=== PATIENT | male | born 1970 | race Two or more races ===

== ENCOUNTER 2018-05-17 22:49 | Emergency (ER) | payer OTHER ==
[~2018-05-17] VITALS: Ht 182.9 cm; Wt 122.5 kg
[2018-05-17 23:00] VITALS: BP 112/71
[2018-05-17] MEDS ORDERED: Clindamycin 900mg 50 ML IVPB ONE (23:15)
--- NOTE | 2018-05-17 23:16 | Emergency Room Report ---
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 He presents with chief complaint of right leg swelling and redness. Onset 2 days ago. He had a fever and swelling to his right lower extremity. Now gets red. Painful to walk. No nausea no vomiting. Pain is 7 out of 10. No trauma. No shortness of breath. No IV drug use. Allergies: Coded Allergies: No Known Allergies (Unverified , 05/17/18) Patient History Past Medical History: see triage record, old chart reviewed Past Surgical History: other Pertinent Family History: none Social History: Reports: smoking Immunizations: other Reviewed Nursing Documentation: PMH: Agreed; PSxH: Agreed Nursing Documentation-PMH Past Medical History: No Stated History Review of Systems Eye: Denies: eye pain, blurred vision ENT: Denies: ear pain, nose congestion, throat swelling Respiratory: Denies: cough, shortness of breath Cardiovascular: Denies: chest pain, palpitations Gastrointestinal: Denies: abdominal pain, diarrhea, nausea, vomiting Musculoskeletal: Reports: joint pain, joint swelling, muscle pain; Denies: back pain Skin: Denies: rash Neurological: Denies: headache, numbness Endocrine: Denies: increased thirst, increased urine Hematologic/Lymphatic: Denies: easy bruising All Other Systems: negative except mentioned in HPI Physical Exam Vital Signs Date Time Temp Pulse Resp B/P (MAP) Pulse Ox O2 Delivery O2 Flow Rate FiO2 05/17/18 22:52 98.0 83 16 125/77 95 Room Air 98.1 vitals normal Sp02 EP Interpretation: reviewed, normal General Appearance: well appearing, no apparent distress, alert Head: normocephalic, atraumatic Eyes: bilateral eye PERRL, bilateral eye EOMI ENT: hearing grossly normal, normal pharynx Neck: full range of motion, supple, no meningismus Respiratory: chest non-tender, lungs clear, normal breath sounds Cardiovascular #1: regular rate, rhythm, no murmur Gastrointestinal: normal bowel sounds, non tender, no mass, no organomegaly, no bruit, non-distended Musculoskeletal: back normal, gait/station normal, normal range of motion, swelling - Right lower extremity: There is edema and erythema from the ankle posteriorly to the calf area. Tender to palpation. Pulses normal. Neurologic: alert, oriented x3 Psychiatric: mood/affect normal Skin: warm/dry Medical Decision Making Diagnostic Impression: Primary Impression: Cellulitis of right lower extremity without foot Additional Impressions: Cocaine abuse Methamphetamine abuse ER Course Patient presents with cellulitis of his right lower extremity. No evidence of DVT. No evidence of necrotizing fasciitis. Dose of IV antibiotics given. We' ll discharge home. Lab Results Impression labs are normal CT/MRI/US Diagnostic Results CT/MRI/US Diagnostic Results : Imaging Test Ordered: Right lower leg ultrasound Impression read by radiologist. Neg Last Vital Signs Date Time Temp Pulse Resp B/P (MAP) Pulse Ox O2 Delivery O2 Flow Rate FiO2 05/17/18 22:52 98.0 83 16 125/77 95 Room Air 98.1 Status: improved Disposition: HOME, SELF-CARE Condition: Stable Scripts Clindamycin Hcl (CLINDAMYCIN HCL) 300 Mg Capsule 300 MG ORAL THREE TIMES A DAY, #21 CAP Prov: GARRETT CLAROS M.D. 05/18/18 Referrals: [facility],REFERRING (PCP) Additional Instructions: Stop using drugs. Follow-up with your DrFahad in 2 days for recheck. Return if worse. GARRETT CLAROS M.D. May 17, 2018 23:16
[2018-05-17 23:45] LABS: EOSINOPHILS % (AUTO) 1.8 % (0.0-3.0); HEMATOCRIT 43.8 % (42.0-52.0); HEMOGLOBIN 13.9 G/DL (14.2-18.0); LYMPHOCYTES % (AUTO) 36.7 % (20.0-45.0); MEAN CORPUSCULAR VOLUME 80 FL (80-99); MONOCYTES % (AUTO) 15.7 % (1.0-10.0); NEUTROPHILS % (AUTO) 44.8 % (45.0-75.0); PLATELET COUNT 212 K/UL (150-450); RED BLOOD COUNT 5.45 M/UL (4.70-6.10); RED CELL DISTRIBUTION WIDTH 12.9 % (11.6-14.8); WHITE BLOOD COUNT 7.1 K/UL (4.8-10.8)
[2018-05-17 23:47] LABS: BILIRUBIN, URINE NEGATIVE (NEGATIVE); GLUCOSE, URINE (UA) NEGATIVE (NEGATIVE); KETONES,URINE NEGATIVE (NEGATIVE); LEUKOCYTE ESTERASE ,URINE 3+ (NEGATIVE); NITRITE,URINE NEGATIVE (NEGATIVE); PH,URINE 5 (4.5-8.0); PROTEIN,URINE 1+ (NEGATIVE); UROBILINOGEN,URINE 4 MG/DL (0.0-1.0)
[2018-05-17 23:56] LABS: APPEARANCE,URINE SLIGHTLY CLOUDY; COLOR,URINE YELLOW
[2018-05-17 23:58] LABS: ANION GAP 6 mmol/L (5-15); BLOOD UREA NITROGEN 12 mg/dL (7-18); CARBON DIOXIDE 30 MMOL/L (21-32); CHLORIDE 102 MMOL/L (98-107); CREATININE 1.2 MG/DL (0.55-1.30); SODIUM 138 MMOL/L (136-145)
[2018-05-18 00:46] VITALS: BP 95/48
[2018-05-18] MEDS ORDERED: CLINDAMYCIN HC300 MG ORAL (01:02)
[2018-05-18 01:13] VITALS: BP 95/48
== END 2018-05-18 01:13 | disposition home or self-care (01) ==
LOC: EMR 23:06
DX: L03.115 Cellulitis of right lower limb (principal); F14.10 Cocaine abuse, uncomplicated; F15.10 Other stimulant abuse, uncomplicated
CPT/HCPCS: 36415; 80048; 80307; 81001; 85025; 85610; 85730; 87086; 93971; 96365; 99284; S0077

== ENCOUNTER 2019-01-13 21:42 | Emergency (ER) | payer OTHER ==
[~2019-01-13] VITALS: Ht 182.9 cm; Wt 111.1 kg
[~2019-01-13 21:42] MED LIST: CLINDAMYCIN HC300 MG ORAL
[2019-01-13 22:24] VITALS: BP 120/74
[2019-01-13] MEDS ORDERED: IBUPROFEN600 MG ORAL (22:32)
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
[2019-01-13 23:06] VITALS: BP 120/74
--- NOTE | 2019-01-14 11:24 | Diagnostic Imaging Report ---
Indication: Right-sided Chest trauma and pain. Comparison: None Findings: 4 views of the right chest wall was obtained for evaluation of the ribs. There is ill-defined density at the left lung base which may be atelectasis. A small effusion is not excluded. The area of interest is on the right sided chest which is the area of trauma. There is no acute fracture identified within the rib cage on the right. The left rib cage was not imaged. Bones are osteopenic. IMPRESSION: No acute fracture. Left basal atelectasis and small pleural effusion versus thickening. Left side is at the region of interest and this is therefore likely incidental.
== END 2019-01-13 23:10 | disposition home or self-care (01) ==
LOC: EMR 22:28
DX: S20.219A Contusion of unspecified front wall of thorax, initial encounter (principal); X58.XXXA Exposure to other specified factors, initial encounter; Y92.9 Unspecified place or not applicable
CPT/HCPCS: 99283

== ENCOUNTER 2019-08-05 22:32 | Emergency (ER) | payer OTHER ==
[~2019-08-05] VITALS: Ht 183.5 cm; Wt 117.9 kg
[~2019-08-05 22:32] MED LIST changes: +IBUPROFEN600 MG ORAL
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
[2019-08-05 22:55] VITALS: BP 120/81
[2019-08-05] MEDS ORDERED: Methocarbamol 750mg tab ORAL ONE ×2 (23:28→23:30)
[2019-08-05] MEDS ORDERED: Ketorolac 30mg Inj ONE (23:28)
[2019-08-05] MEDS ORDERED: Ketorolac 60mg Inj IM ONE (23:30)
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
[2019-08-05] MEDS ORDERED: ROBAXIN-750750 MG PO (23:44)
[2019-08-05] MEDS ORDERED: IBUPROFEN600 MG ORAL (23:44)
[2019-08-05 23:46] VITALS: BP 129/88
--- NOTE | 2019-08-05 23:46 | NUR ---
ER DISCHARGE NOTE: Patient is cleared to be discharged per ERMD, pt is aox4, on room air, with stable vital signs. pt was given dc instructions, pt was able to verbalize understanding, pt id band removed without complications. pt is able to ambulate with steady gait. pt took all belongings.
== END 2019-08-05 23:46 | disposition home or self-care (01) ==
LOC: EMR 23:01
DX: M54.5 Low back pain (principal); V43.92XA Unspecified car occupant injured in collision with other type car in traffic accident, initial encounter; Y92.410 Unspecified street and highway as the place of occurrence of the external cause
CPT/HCPCS: 96372; 99283

== ENCOUNTER 2019-12-17 21:10 | Emergency (ER) | payer OTHER ==
[~2019-12-17] VITALS: Ht 182.9 cm; Wt 122.5 kg
[~2019-12-17 21:10] MED LIST changes: +ROBAXIN-750750 MG PO
[2019-12-17 21:22] VITALS: BP 148/88
--- NOTE | 2019-12-17 21:23 | NUR ---
ER Nurse Note: Pt walked in c/o LT jaw pain for unk time. Pt stated 8/10 aching pain with abcess in LT cheeck pocket. No fever. Pt stated he has not seen the dentist. Will conitnue to jane.
[2019-12-17] MEDS ORDERED: Augmentin 875mg Tab ORAL ONE (21:30)
[2019-12-17] MEDS ORDERED: IBUPROFEN600 MG ORAL (21:37)
[2019-12-17] MEDS ORDERED: AUGMENTIN 875-1 EAC1 ORAL (21:37)
[2019-12-17 21:40] VITALS: BP 148/88
--- NOTE | 2019-12-17 21:40 | NUR ---
ED Nurse Note: All orders completed per ERMD orders. Pt cleared by health care Provider for discharge. DC instructions/prescription was given and explained to pt and verbalized understanding of teachings. Instructed pt to follow up with primary care physican within one week. All medical deviecs such as ID band removed. Pt is AAO x4, ambulatory and left with all personal belongings.
--- NOTE | 2019-12-18 00:12 | Emergency Room Report ---
History of Present Illness General Chief Complaint: Toothache Source: Patient Present Illness HPI 49-year-old male presents ED complaining of left tooth pain and swelling. States symptoms started x1 day. Pain is throbbing, 8 out of 10, nonradiating. States he needs to have some dental work done but has not gone yet. Denies fevers or chills. Denies discharge. Denies neck stiffness. No other aggravating relieving factors. Denies any other associated symptoms Allergies: Coded Allergies: No Known Allergies (Unverified , 05/17/18) Patient History Past Medical History: none Past Surgical History: none Pertinent Family History: none Social History: Denies: smoking, alcohol use, drug use Immunizations: UTD Reviewed Nursing Documentation: PMH: Agreed; PSxH: Agreed Nursing Documentation-PMH Past Medical History: No Stated History Review of Systems All Other Systems: negative except mentioned in HPI Physical Exam Vital Signs Date Time Temp Pulse Resp B/P (MAP) Pulse Ox O2 Delivery O2 Flow Rate FiO2 12/17/19 21:14 98.2 84 16 148/88 (108) 96 Room Air Sp02 EP Interpretation: reviewed, normal General Appearance: no apparent distress, alert, GCS 15, non-toxic, obese Head: normocephalic, atraumatic Eyes: bilateral eye normal inspection, bilateral eye PERRL ENT: hearing grossly normal, normal pharynx, no angioedema, normal voice, other - Audible dental caries. Cracked teeth L upper jaw. surroudning swelling. no fluctuance. no induration Neck: full range of motion, supple, supple/symm/no masses Respiratory: chest non-tender, lungs clear, normal breath sounds, speaking full sentences Cardiovascular #1: regular rate, rhythm, no edema Cardiovascular #2: 2+ carotid (R), 2+ carotid (L), 2+ radial (R), 2+ radial (L) , 2+ dorsalis pedis (R), 2+ dorsalis pedis (L) Gastrointestinal: normal bowel sounds, non tender, soft, non-distended, no guarding, no rebound Rectal: deferred Genitourinary: normal inspection, no CVA tenderness Musculoskeletal: back normal, normal range of motion, gait/station normal, non- tender Neurologic: alert, motor strength/tone normal, oriented x3, sensory intact, responsive, speech normal Psychiatric: judgement/insight normal, memory normal, mood/affect normal, no suicidal/homicidal ideation Reflexes: 3+ bicep (R), 3+ bicep (L), 3+ tricep (R), 3+ tricep (L), 3+ knee (R) , 3+ knee (L) Lymphatic: no adenopathy Medical Decision Making Diagnostic Impression: Primary Impression: Toothache ER Course 49-year-old male presents ED complaining of tooth pain. Cracked tooth, dental abscess, cavity Patient placed on stretcher. After initial history, physical exam reveals a male in mild distress. There are multiple dental caries with some decaying teeth noted in the left upper jaw. There is some surrounding swelling notably in the cheek. No induration or fluctuance or discharge. Discussed findings with patient. Given antibiotics and pain meds in ED. Will discharge home with prescriptions. He needs to follow-up with dentist soon. I will provide referrals. Diagnosis- toothache Stable and discharged to home prescription for Motrin, augmentin. Instructed to see dentist as a walk-in this week. Return to ED if symptoms recur or worse Last Vital Signs Date Time Temp Pulse Resp B/P (MAP) Pulse Ox O2 Delivery O2 Flow Rate FiO2 12/17/19 22:14 98.2 12/17/19 21:40 86 16 148/88 96 Room Air Status: improved Disposition: HOME, SELF-CARE Condition: Stable Scripts Ibuprofen* (MOTRIN*) 600 Mg Tablet 600 MG ORAL Q8H PRN for For Pain, #30 TAB 0 Refills Prov: Henrique Hawkins MD 12/17/19 Amoxicillin/Potassium Clav 875-125* (AUGMENTIN 875-125 TABLET*) 1 Each Tablet 1 TAB ORAL TWICE A DAY, #14 TAB Prov: Henrique Hawkins MD 12/17/19 Referrals: [facility](age 2-12) - Orthodontic Clinic - Hours: Mon,Fri,, 8:15am and 1pm (new patient screening), Tu. 1pm. Emergency clinic Friday - Friday 8:30am and 1pm, . 1pm. *Call to check if clinic is open; No appointment necessary for the first visit ( new patient screening), Arrive 15-30 minutes early as it is first come, first serve. [facility] INFO: New Patient Screening: Fri- 8am-1pm Mon- 9am -5pm and Fri 2pm-5pm Patient Instructions: Dental Pain Henrique Hawkins MD Dec 18, 2019 00:12
== END 2019-12-17 21:40 | disposition home or self-care (01) ==
LOC: EMR 21:30
DX: K08.89 Other specified disorders of teeth and supporting structures (principal)
CPT/HCPCS: 99282

== ENCOUNTER 2020-11-07 17:04 | Emergency (ER) | payer OTHER ==
[~2020-11-07] VITALS: Ht 188 cm; Wt 117.9 kg
[~2020-11-07 17:04] MED LIST changes: +AUGMENTIN 875-1 EAC1 ORAL
[2020-11-07 17:29] VITALS: BP 120/80
--- NOTE | 2020-11-07 18:48 | Emergency Room Report ---
History of Present Illness General Chief Complaint: Fever Source: Patient (Estefania Reid) Present Illness HPI 50 YO male presents to the emergency department complaining of 6 out of 10 in severity pain and swelling to the right lower side of his jaw x3 hours. Patient reports swelling got worse after eating. Patient reports that his symptoms are slowly resolving. He denies history of salivary stones. Patient does report frequent dry mouth and states that he smokes marijuana regularly. He denies dental pain or posterior throat pain. Patient is also complaining of cough with fevers x5 days. He denies mucus production. Patient denies chest pain or shortness of breath despite having a low oxygen saturation in triage. Patient states he has not been tested for COVID-19. He does report initially having some body aches. He denies headache, neck pain/stiffness, photophobia, abdominal pain or tenderness. Pt. denies hx of asthma or COPD. Pt. denies wheezing or swelling of the lower extremities. Pt. denies taking any OTC medications today, Significant PMHx of Hep C. Pt. reports he primarily came to the ED due to acute onset of facial /jaw while eating. 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: No (Estefania Reid) Patient History Past Medical History: see triage record Past Surgical History: none Pertinent Family History: none Social History: Reports: smoking - THC, drug use - THC Reviewed Nursing Documentation: PMH: Agreed; PSxH: Agreed (Estefania Reid) Nursing Documentation-PMH Past Medical History: No Stated History (Estefania Reid) Review of Systems All Other Systems: negative except mentioned in HPI (Estefania Reid) Physical Exam Vital Signs Date Time Temp Pulse Resp B/P (MAP) Pulse Ox O2 Delivery O2 Flow Rate FiO2 11/07/20 17:20 99.9 100 18 120/80 (93) 92 Room Air Sp02 EP Interpretation: reviewed, normal General Appearance: no apparent distress, alert, GCS 15, non-toxic Head: normocephalic, atraumatic Eyes: bilateral eye normal inspection, bilateral eye PERRL ENT: hearing grossly normal, normal pharynx, normal voice, uvula midline, moist mucus membranes, other - no tonsillar swelling or exudates Neck: full range of motion, supple, supple/symm/no masses, other - no obvious visible swelling. Respiratory: chest non-tender, lungs clear, normal breath sounds, speaking full sentences, other - occasional expiratory wheez bilaterally, NO obvious rales, ronchi, or persistent wheezing. Cardiovascular #1: regular rate, rhythm, no edema Musculoskeletal: normal range of motion, gait/station normal, non-tender Neurologic: alert, motor strength/tone normal, oriented x3, sensory intact, responsive, speech normal Psychiatric: judgement/insight normal, memory normal Skin: no rash, normal color Lymphatic: no adenopathy (Estefania Reid) Medical Decision Making PA Attestation Dr. Davis Is my supervising Physician whom patient management has been discussed with. (Estefania Reid) Diagnostic Impression: Primary Impression: Sialosis Additional Impressions: Sialolithiasis Viral URI with cough ER Course Ddx considered but are not limited to sialoadenitis, sialolithiasis, mumps, abscess, neoplasm/mass, adenopathy, URI/ Covid-19, PNA just to name a few. Vital signs: are WNL, pt. is afebrile H&PE are most consistent with Pt. has a benign PE regarding his spontaneously resolved Right sided lower jaw/ neck pain and swelling. Based on HPI highly suspect sialolithiasis. No evidence to suggest bacterial infection of the salivary duct at this time. Pharynx is unremarkable. Patient is nontoxic in appearance, in no acute distress/respiratory distress, no increase in respiratory effort despite having O2 Saturation of 92-93%. ORDERS: -CXR: unremarkable per ED prelim read. ED INTERVENTIONS: None required at this time. Since right sided facial /jaw symptoms have resolved during pt.'s wait, Pt. is requesting to leave and regularly asking the attending nurses if he can go now. d/w pt. -D/W pt. suspicion of COVID-19 based upon hx of fevers and persistent cough. -D/W pt. suspicion of salivary duct stone possibly secondary to THC use/dry mouth. Pt. given strict ED return precautions given abnormal vital sign of low oxygen saturation. -I do not identify an emergent condition at this time. With current presentation, pt. is stable for close outpatient follow up and conservative treatment. D/w pt. to return promptly to ED with worsening or new symptoms.- Pt. verbalizes' understanding and agreement with proposed treatment plan. DISCHARGE: At this time pt. is stable for d/c to home. Will provide printed patient care instructions, and any necessary prescriptions. Care plan and follow up instructions have been discussed with the patient prior to discharge. (Estefania Reid) Chest X-Ray Diagnostic Results Chest X-Ray Diagnostic Results : Chest X-Ray Ordered: Yes # of Views/Limited/Complete: 1 View Indication: Other - Cough with Low Oxygen saturation EP Interpretation: Yes PA Xray: Interpretation reviewed, by supervising MD, and agrees with findings. Interpretation: no consolidation, no effusion, no pneumothorax, no acute cardiopulmonary disease Impression: No acute disease Electronically Signed by: Estefania Reid PA-C (Estefania Reid) Chest X-Ray Diagnostic Results : Electronically Signed by: Cat Osei documentation of Xray reviewed by me and is accurate, Mahendra Davis MD (Mahendra Davis MD) Last Vital Signs Date Time Temp Pulse Resp B/P (MAP) Pulse Ox O2 Delivery O2 Flow Rate FiO2 11/07/20 17:29 99.9 18 120/80 92 Room Air 11/07/20 17:27 102 Status: improved (Estefania Reid) Disposition: HOME, SELF-CARE Condition: Stable Scripts D-Methorphan Hb/Prometh Hcl* (PROMETHAZINE-DM SYRUP*) 118 Ml Syrup 5 ML ORAL Q6H PRN for For Cough, #120 ML 0 Refills Prov: Estefania Reid 11/07/20 Ibuprofen* (MOTRIN*) 600 Mg Tablet 600 MG ORAL THREE TIMES A DAY, #20 TAB Prov: Estefania Reid 11/07/20 Referrals: [facility],REFERRING (PCP) Rossy Mckeon [facility] + [facility] Patient Instructions: Cough, Adult, [id number], Fever, Adult, [id number], Salivary Stone, Upper Respiratory Infection, Adult, [id number] Additional Instructions: Take medications as directed. REVIEW COVID-19 INFORMATION ATTACHED Follow up with a Primary Care Provider in 3-5 days, even if your symptoms have resolved. --Please review list of primary care clinics, if you do not already have a primary care provider Return sooner to ED if new symptoms occur, or current symptoms become worse. - Please note that this Emergency Department Report was dictated using Shopsybanana handler technology software, occasionally this can lead to erroneous entry secondary to interpretation by the dictation equipment. Estefania Reid Nov 07, 2020 18:48 Mahendra Davis MD Nov 08, 2020 02:02
[2020-11-07] MEDS ORDERED: PROMETHAZINE-D118 ML ORAL (18:49)
[2020-11-07] MEDS ORDERED: IBUPROFEN600 M1 ORAL (18:49)
[2020-11-07 18:55] VITALS: BP 120/80
--- NOTE | 2020-11-07 19:01 | NUR ---
ER DISCHARGE NOTE: Patient is cleared to be discharged per ERMD, pt is aox4, on room air, with stable vital signs. pt was given dc and prescription instructions, pt was able to verbalize understanding, pt id band removed without complications. pt is able to ambulate with steady gait. pt took all belongings.
--- NOTE | 2020-11-08 12:50 | Diagnostic Imaging Report ---
Indication: Cough Technique: XRAY Chest 1v Comparison: None Findings: Question some subtle interstitial infiltrates in the bases. No dense consolidation. No significant pleural effusion. No pneumothorax. Heart size is within normal limits for AP technique. Mediastinal contours are sharp. No appreciable acute osseous abnormality. Impression: Questionable subtle interstitial infiltrates in the bases. Findings may potentially be related to artifact/bronchovascular crowding, subsegmental atelectasis or developing infectious infiltrate.
== END 2020-11-07 19:01 | disposition home or self-care (01) ==
LOC: EMR 17:38
DX: K11.7 Disturbances of salivary secretion (principal); K11.5 Sialolithiasis; J06.9 Acute upper respiratory infection, unspecified; F17.200 Nicotine dependence, unspecified, uncomplicated; F12.90 Cannabis use, unspecified, uncomplicated; Z86.19 Personal history of other infectious and parasitic diseases
CPT/HCPCS: 71045; 99283